=== PATIENT | female | born 1940 | race Caucasian/White ===

== ENCOUNTER 2018-10-06 16:28 | Inpatient (IN) ==
[2018-10-06] MEDS ORDERED: D50W SYRINGE IV PRN (18:15)
[2018-10-06] MEDS: ROCEPHIN 1 GM in NS 50 ML IV SCH (18:19)
[2018-10-06 18:20] LABS: ALLEN TEST YES; BE 8.8 mmoll (-3.0-3.0); BLOOD TYPE ARTERIAL; HCO3-(ACT) 31.7 mmoll (20.0-26.0); METHB 0.9 % (0.0-1.5); O2(CT) 15.5 mL/dL (15.0-23.0); O2HB 94.2 % (95.0-99.0); PCO2(98.6) 32 mmHg (35-45); PO2(98.6) 68 mmHg (60-100); SAMPLE BLOOD; SAO2 96.9 % (95.0-100.0); THB 11.7 g/dL (11.5-17.4)
[2018-10-06 18:21] LABS: MODALITY CANNULA; pH(98.6) 7.59 (7.35-7.45)
[2018-10-06] MEDS: NS 1,000 ML IV SCH ×2 (18:25→19:44)
[2018-10-06] MEDS ORDERED: NS 1,000 ML IV SCH (18:30)
[2018-10-06] MEDS ORDERED: CATAPRES PO PRN (18:32)
[2018-10-06 18:50] LABS: URINE SOURCE CATH
[2018-10-06 18:53] LABS: BILIRUBIN URINE NEGATIVE (NEGATIVE); BLOOD URINE MODERATE (NEGATIVE); COLOR ORANGE; GLUCOSE URINE NEGATIVE (NEGATIVE); KETONE URINE NEGATIVE (NEGATIVE); LEUKOCYTES URINE LARGE (NEGATIVE); NITRITE URINE NEGATIVE (NEGATIVE); PROTEIN URINE 100 mg/dL (NEGATIVE); SP GRAVITY URINE 1.016; TURBIDITY URINE TURBID (CLEAR); UROBILINOGEN URINE NORMAL (NORMAL)
[2018-10-06 19:14] LABS: BASO# 0.02 X1000 (0.0-0.2); BASO% 0.2 % (0.0-0.8); EOS# 0.07 X1000 (0.0-0.7); EOS% 0.8 % (0.0-10.0); HEMATOCRIT 35.8 % (37.0-47.0); LYMPH# 1.69 X1000 (1.2-3.4); LYMPH% 18.8 % (20.5-51.1); MCHC 33.5 g/dL (33-37); MCV 83.4 FL (81-99); MONO# 1.19 X1000 (0.11-0.59); MONO% 13.2 % (1.7-9.3); MPV 11.7 FL (7.4-10.4); NEUT# 6.04 X1000 (1.4-6.5); PLT 146 X1000 (130-400); RBC 4.29 XMIL (4.2-5.4); RDW 13.3 % (11.5-14.5); WBC 9.01 X1000 (4.8-10.8)
[2018-10-06 19:20] LABS: UR EPITHELIAL CELLS <10 /HPF (<10); URINE BACTERIA 4+ /HPF; URINE RBC <10 /HPF (<10); URINE WBC TNTC /HPF (<10)
[2018-10-06 19:21] LABS: URINE CASTS GRANULAR PRESENT; URINE CRYSTALS NONE SEEN; URINE SMALL ROUND CELLS NONE SEEN; URINE YEAST NONE SEEN
[2018-10-06 19:25] LABS: HEMOGLOBIN A1C 5.5 % (4.8-6.0)
[2018-10-06 19:35] LABS: ALB/GLOB RATIO 1.3; ALBUMIN 3.4 g/dL (3.5-5.0); CALCIUM 7.8 mg/dL (8.8-10.2); CREATININE 1.5 mg/dL (0.5-0.9); POTASSIUM 2.8 mmol/L (3.5-5.1); TOTAL BILIRUBIN 2.55 mg/dL (0.20-1.00)
[2018-10-06] MEDS: TYLENOL PO PRN (19:51)
[2018-10-06] MEDS: HUMULIN R SUBQ SCH (20:57)
[2018-10-07] MEDS: NS 1,000 ML IV SCH ×4 (03:03→23:59)
[2018-10-07] MEDS: ROCEPHIN 1 GM in NS 50 ML IV SCH ×2 (06:01→17:29)
[2018-10-07] MEDS: HUMULIN R SUBQ SCH ×4 (06:01→21:52)
--- NOTE | 2018-10-07 07:21 | EKG Report ---
Test Performed on : 10/07/2018 06:49:05 AM Test Reason : Hypotension Blood Pressure : / mmHG Vent. Rate : 065 BPM Atrial Rate : 065 BPM P-R Int : 150 ms QRS Dur : 084 ms QT Int : 488 ms P-R-T Axes : 029 063 049 degrees QTc Int : 507 ms Normal sinus rhythm. Prolonged QT Abnormal ECG When compared with ECG of 19-AUG-2017 13:26, No significant change was found Confirmed by August RAMIREZ, Valeriy Hill ([id number]) on 10/07/2018 6:39:05 PM
--- NOTE | 2018-10-07 07:53 | Diag Imaging Result Doc PS360 ---
EXAM: CHEST-PORTABLE 10/07/2018 HISTORY: Bronchitis TECHNIQUE: AP portable at 0516 COMMENT: There is subsegmental atelectasis in the left base which is slightly worse than on 08/19/2017. Otherwise are has been no significant change. IMPRESSION: Left lower lobe atelectasis. Electronically signed by Darryl Mohr 10/07/2018 7:51 AM
[2018-10-07] MEDS: KLOR-CON PO SCH ×2 (08:48→21:45)
[2018-10-07] MEDS: TYLENOL PO PRN ×2 (08:48→23:59)
--- NOTE | 2018-10-07 09:10 | PROGRESS NOTE ---
DATE: 10/07/2018 SUBJECTIVE: The patient says she still does not feel well. She was running a fever when she first came in, and that has come down. When I saw her in the office, her blood pressure standing was 80/40. When she got here at the hospital her blood pressure was better but they were checking her pressure while she was lying down. OBJECTIVE: Vital Signs: Temperature 98.7 degrees Fahrenheit, blood pressure 127/63, respirations 18, pulse 61. Temperature was 100.8 degrees initially when she came in the hospital. HEENT: She is normocephalic. EOMs intact. Throat clear. Patient does complain of headache. Neck: Supple. Lungs: Sound clear to auscultation and percussion without rhonchi, rales, or wheezes. Heart: Regular rate and rhythm without murmurs, gallops, friction rubs. Abdomen: Soft. Active bowel sounds. No organomegaly or tenderness. Neurological: Intact grossly. The patient appears to feel bad. LABORATORY DATA: White count is only 9010, hemoglobin 12.0. Blood gas showed a pH of 7.59, pCO2 32, PO2 of 68. Her potassium was 2.8, her sodium 135. Total bilirubin was up at 2.55. Urinalysis shows white blood cells too numerous to count. She has 4+ bacteria. Urine culture is pending. Has been started on antibiotics. We will start on supplemental potassium. ASSESSMENT: 1. Hypotension. 2. Rule out urosepsis. 3. Urinary tract infection. 4. Hypoxia. 5. History of hypertension. 6. Headache. PLAN: Continue IV fluids. Have consulted Pulmonology for the hypotension and for the hypoxia. It is interesting that her oxygen saturation at the office was 97%. Possibly this could be due to her urosepsis or just an urinary tract infection, but that does not exactly explain her PO2 of only 68. We will continue to support and await cultures. cc: MD BRANDIE Sarabia Jr
[2018-10-07] MEDS ORDERED: DULCOLAX PR ONE (14:25)
--- NOTE | 2018-10-08 01:54 | PULMONOLOGY CONSULTATION ---
DATE: 10/07/2018 REQUESTING PHYSICIAN: Dr. Wilson. REASON FOR CONSULTATION: Wheezing. HISTORY OF PRESENT ILLNESS: Ms. Shah is a 77-year-old white female, never smoker, with history of hypertension, who has felt nauseous over the last several days associated with decreased p.o. intake. She was evaluated by Dr. Wilson and was noted to be hypoxemic and hypotensive. She was admitted to the ICU for additional evaluation and treatment. The patient does report cough. She denies significant sputum production. She has received IV fluids with some symptomatic improvement. PAST MEDICAL HISTORY: 1. Hypertension, on 3 medications. 2. Hypothyroidism. 3. Dyslipidemia. 4. Anxiety disorder. 5. Mitral valve prolapse. 6. Benign positional vertigo. 7. History of depression. 8. History of type 2 diabetes mellitus. 9. Status post appendectomy. 10. Status post bladder tacking surgery. 11. Cataract surgery. 12. Status post cholecystectomy. 13. Status post hysterectomy. SOCIAL HISTORY: The patient is a nonsmoker and a nondrinker. FAMILY HISTORY: Positive for hypertension, dementia, blood clots in several family members. REVIEW OF SYSTEMS: As noted in the HPI. PHYSICAL EXAMINATION: General: Reveals a well-developed, well-nourished female, resting comfortably and in no distress. Vital signs: Maximum temperature in the last 24 hours 100.8 degrees. Blood pressure 133/57, heart rate 66, respiratory rate 19, oxygen saturation 98% on 2 L per nasal cannula. HEENT: Pupils are equal and reactive. Oropharynx appears clear. Neck: Supple. Chest: Reveals crackles at the left base. Cardiac: S1, S2. Abdomen: Soft. Extremities: Without edema. LABORATORIES: Blood cultures are negative to date. Urine culture is growing a gram-negative tommie. Arterial blood gas reveals pH 7.59, pCO2 of 32, PO2 of 68, with an increased AA gradient of 92. IMPRESSION: A 77-year-old with 1. Acute hypoxemic respiratory failure. 2 Atelectasis 3. Mild hypotension, likely related to dehydration. 4. Gram-negative urinary tract infection. 5. Dizziness. RECOMMENDATIONS: 1. Agree with continued hydration, but would decrease IV fluids Marvin morning. 2. Continue current antibiotics pending results of urinary tract cultures. 3. Initiate incentive spirometry. 4. Followup 2 view chest x-ray. If atelectasis persists at the left base, would pursue CT scan. cc: MD Aureliano Jung Jr, MD MTDD
[2018-10-08] MEDS: ROCEPHIN 1 GM in NS 50 ML IV SCH (05:01)
[2018-10-08 05:40] LABS: BASO# 0.02 X1000 (0.0-0.2); BASO% 0.4 % (0.0-0.8); EOS# 0.18 X1000 (0.0-0.7); EOS% 3.8 % (0.0-10.0); HEMATOCRIT 31.8 % (37.0-47.0); HEMOGLOBIN 10.5 g/dL (12.0-16.0); LYMPH# 1.47 X1000 (1.2-3.4); LYMPH% 30.9 % (20.5-51.1); MCH 27.4 PG (27-31); MONO# 0.71 X1000 (0.11-0.59); MONO% 14.9 % (1.7-9.3); MPV 11.8 FL (7.4-10.4); NEUT# 2.38 X1000 (1.4-6.5); PLT 134 X1000 (130-400); RBC 3.83 XMIL (4.2-5.4); RDW 13.2 % (11.5-14.5); WBC 4.76 X1000 (4.8-10.8)
[2018-10-08] MEDS: NS 1,000 ML IV SCH ×3 (06:45→19:56)
[2018-10-08] MEDS: HUMULIN R SUBQ SCH ×4 (06:46→19:57)
[2018-10-08 06:59] LABS: CALCIUM 6.9 mg/dL (8.8-10.2)
[2018-10-08 07:00] LABS: CREATININE 1.1 mg/dL (0.5-0.9); MAGNESIUM 1.6 mg/dL (1.5-2.7); PHOSPHORUS 2.1 mg/dL (2.7-4.5); POTASSIUM 2.9 mmol/L (3.5-5.1)
--- NOTE | 2018-10-08 07:12 | Diag Imaging Result Doc PS360 ---
EXAM: CHEST-PORTABLE 10/08/2018 HISTORY: abnormal exam TECHNIQUE: AP portable at 0523 COMMENT: The subsegmental atelectasis in the left lower lobe which was present on 10/07/2018 has largely resolved. Otherwise the appearance of the chest has not changed significantly. IMPRESSION: Improved left lower lobe atelectasis. Electronically signed by Darryl Mohr 10/08/2018 7:10 AM
[2018-10-08] MEDS: KLOR-CON PO SCH ×2 (08:20→19:57)
[2018-10-08] MEDS ORDERED: ALBUMIN 25% IV ONE (08:46)
[2018-10-08 09:20] LABS: ALB/GLOB RATIO 1.4; ALBUMIN 2.8 g/dL (3.5-5.0); DIRECT BILIRUBIN 0.1 mg/dL (0.00-0.20); T4 7.69 ug/dL (4.60-12.00); TOTAL BILIRUBIN 0.47 mg/dL (0.20-1.00); TOTAL PROTEIN 4.8 g/dL (6.3-8.3); TSH 1.09 uIUmL (0.27-4.20)
[2018-10-08 09:27] LABS: URINE SOURCE CATH
[2018-10-08 09:40] LABS: BILIRUBIN URINE NEGATIVE (NEGATIVE); BLOOD URINE TRACE (NEGATIVE); COLOR STRAW; GLUCOSE URINE NEGATIVE (NEGATIVE); KETONE URINE NEGATIVE (NEGATIVE); LEUKOCYTES URINE NEGATIVE (NEGATIVE); NITRITE URINE NEGATIVE (NEGATIVE); PROTEIN URINE 30 mg/dL (NEGATIVE); SP GRAVITY URINE 1.001; TURBIDITY URINE CLEAR (CLEAR); UROBILINOGEN URINE NORMAL (NORMAL)
[2018-10-08 09:41] LABS: UR EPITHELIAL CELLS <10 /HPF (<10); URINE BACTERIA NEGATIVE /HPF; URINE RBC <10 /HPF (<10); URINE WBC <10 /HPF (<10)
--- NOTE | 2018-10-08 10:51 | Diag Imaging Result Doc PS360 ---
EXAM: US ABDOMEN-COMPLETE 10/08/2018 HISTORY: hyperbilirubinemia TECHNIQUE: Abdominal ultrasound COMMENT: The pancreatic head and body are normal in appearance. The visualized portions of the aorta and inferior vena cava are within normal limits. The liver is slightly hyperechoic and inhomogeneous in echotexture. There is antegrade flow in the portal vein. The common bile duct is dilated at 8 mm. The kidneys are without evidence of hydronephrosis or mass. The spleen is not enlarged. There are no abnormal fluid collections. The gallbladder is surgically absent. IMPRESSION: Borderline dilatation the common bile duct. This may be physiologic following cholecystectomy. Otherwise no evidence of acute disease. Electronically signed by Darryl Mohr 10/08/2018 10:49 AM
--- NOTE | 2018-10-08 11:03 | PROGRESS NOTE ---
DATE: 10/08/2018 SUBJECTIVE: The patient says she is feeling better. OBJECTIVE: Blood pressure 140/69. She has no orthostasis now. Respirations 18, pulse 68, and temperature 98 degrees Fahrenheit.HEENT: She is normocephalic. EOMs intact. PERRLA. Throat clear. Lungs: Clear to auscultation and percussion without rhonchi, rales, or wheezes. Chest x-ray shows improvement of the left lower lobe atelectasis. Heart: Regular rate and rhythm without murmurs, gallops, or friction rubs. Abdomen: Soft. Active bowel sounds. No organomegaly or tenderness. Neurological: Intact grossly. Patient does look better. LABORATORY: Calcium of 6.9, but albumin of 2.7. She is growing gram-negative tommie in her urine. This has not been identified yet. Potassium is up from 2.8 to 2.9. She is getting oral potassium. Initial bilirubin was elevated to 2.55. ASSESSMENT: 1. Hypotension resolved. 2. Hypoxia improved. 3. Urinary tract infection. 4. Atelectasis of left lower lung field. 5. Hypokalemia. 6. Hypoalbuminemia. 7. Hypocalcemia. 8. Hyperbilirubinemia. PLAN: We will transfer her to telemetry bed. We will give her some albumin. She has not been eating much. We will get an ultrasound of her abdomen because of the elevated bilirubin. We will continue IV antibiotics until we see what her culture is on her urine. It should be noted that her white count is 4760, hemoglobin 10.5. She is swelling some which may be due to her low albumin, and the fact that we have been pushing fluids for her blood pressure. We will decrease her fluids. cc: Aureliano Wilson Jr, MD [facility]
[2018-10-08] MEDS: MERREM 500 MG in NS 50 ML IV SCH ×2 (12:16→19:56)
--- NOTE | 2018-10-08 18:21 | PULMONOLOGY PROGRESS NOTE ---
DATE: 10/08/2018 SUBJECTIVE: The patient is awake, alert, and conversant. She reports she feels significantly better. She is tolerating p.o. intake. OBJECTIVE: Vital Signs: The patient has been afebrile for the last 24 hours. Blood pressure 136/90, heart rate 73, respiratory rate 20, oxygen saturation 99% on 2 L per nasal cannula. HEENT: Pupils are equal and reactive. Oropharynx is clear. Neck: Supple. Chest: Reveals good air entry bilaterally. Cardiac exam: S1-S2. Abdomen: Soft. Extremities: Are without edema. LABORATORIES: Urine culture reveals an ESBL positive E coli. Chest x-ray reveals clearing of the left lower lobe atelectasis. IMPRESSION: A 77-year-old with: 1. Acute hypoxemic respiratory failure. 2. Mild dehydration with resolution following fluids. 3. ESBL positive E coli. 4. Atelectasis with resolution. RECOMMENDATIONS: 1. Initiate a carbapenem for her ESBL positive E coli. 2. Continue bronchial hygiene. 3. Continue incentive spirometry. 4. Pulmonary issues appear to be resolving. Will sign off. Please consult if needed. cc: MD Aureliano Jung Jr, MD
[2018-10-09] MEDS: TYLENOL PO PRN ×2 (00:17→21:55)
[2018-10-09] MEDS: HUMULIN R SUBQ SCH ×5 (04:46→21:54)
[2018-10-09] MEDS: KLOR-CON PO SCH ×3 (04:47→21:55)
[2018-10-09] MEDS: MERREM 500 MG in NS 50 ML IV SCH ×3 (05:45→21:54)
[2018-10-09 07:37] LABS: BASO# 0.03 X1000 (0.0-0.2); BASO% 0.6 % (0.0-0.8); EOS# 0.15 X1000 (0.0-0.7); EOS% 3.1 % (0.0-10.0); HEMATOCRIT 31.9 % (37.0-47.0); HEMOGLOBIN 10.4 g/dL (12.0-16.0); IMM GRAN# 0.02 X1000 (0.0-0.04); IMM GRAN% 0.4 % (0.0-0.5); LYMPH# 1.55 X1000 (1.2-3.4); LYMPH% 32.4 % (20.5-51.1); MCH 27.1 PG (27-31); MCHC 32.6 g/dL (33-37); MCV 83.1 FL (81-99); MONO# 0.44 X1000 (0.11-0.59); MONO% 9.2 % (1.7-9.3); NEUT% 54.3 % (42.2-75.2); PLT 139 X1000 (130-400); RBC 3.84 XMIL (4.2-5.4); WBC 4.79 X1000 (4.8-10.8)
[2018-10-09 08:02] LABS: CALCIUM 7.9 mg/dL (8.8-10.2); POTASSIUM 3.2 mmol/L (3.5-5.1)
--- NOTE | 2018-10-09 12:54 | PROGRESS NOTE ---
DATE: 10/09/2018 SUBJECTIVE: The patient says she feels much better. OBJECTIVE: Vital Signs: Blood pressure 138/85, respirations 18, pulse 65, temperature 98.1 degrees Fahrenheit. HEENT: She is normocephalic. EOMS intact. PERRLA. Throat clear. Lungs: Clear to auscultation and percussion without rhonchi, rales, or wheezes. Heart: Regular rate and rhythm without murmurs, gallops, or friction rubs. Abdomen: Soft. Active bowel sounds. No organomegaly or tenderness. Neurological: Intact grossly. LABORATORY DATA: White count is down to 4790. Potassium is still a little low at 3.2, but we are supplementing her potassium. Calcium is back up to 7.9. She is eating better now. Urinalysis yesterday was normal. She has been changed over to meropenem, as she was resistant to the Rocephin. When she goes home, we will probably put her on Macrobid. ASSESSMENT: 1. Hypotension, resolved. 2. Urinary tract infection, resolving. 3. Respiratory distress. 4. Weakness. 5. Hypokalemia. PLAN: We will get her up with physical therapy. Continue her antibiotics. Her calcium got better after I gave her some albumin, as she was low on her albumin. If she does well with her walking today and has no trouble with her breathing, possibly home in the morning. cc: Aureliano Wilson Jr, MD
[2018-10-09] MEDS: NS 1,000 ML IV SCH (14:05)
[2018-10-10] MEDS: NS 1,000 ML IV SCH (03:30)
[2018-10-10] MEDS: MERREM 500 MG in NS 50 ML IV SCH ×2 (03:31→12:58)
[2018-10-10] MEDS: HUMULIN R SUBQ SCH ×2 (06:12→11:25)
[2018-10-10 07:15] LABS: BASO# 0.02 X1000 (0.0-0.2); BASO% 0.3 % (0.0-0.8); EOS# 0.18 X1000 (0.0-0.7); EOS% 2.7 % (0.0-10.0); HEMATOCRIT 30.9 % (37.0-47.0); HEMOGLOBIN 10.3 g/dL (12.0-16.0); IMM GRAN# 0.02 X1000 (0.0-0.04); IMM GRAN% 0.3 % (0.0-0.5); LYMPH% 19.8 % (20.5-51.1); MCH 27.5 PG (27-31); MCHC 33.3 g/dL (33-37); MCV 82.4 FL (81-99); MONO# 0.55 X1000 (0.11-0.59); MONO% 8.4 % (1.7-9.3); MPV 11.7 FL (7.4-10.4); NEUT# 4.48 X1000 (1.4-6.5); NEUT% 68.5 % (42.2-75.2); PLT 163 X1000 (130-400); RBC 3.75 XMIL (4.2-5.4); RDW 13.1 % (11.5-14.5); WBC 6.55 X1000 (4.8-10.8)
[2018-10-10 07:48] LABS: CALCIUM 7.7 mg/dL (8.8-10.2); CREATININE 0.9 mg/dL (0.5-0.9); POTASSIUM 3.7 mmol/L (3.5-5.1)
[2018-10-10] MEDS: KLOR-CON PO SCH (09:44)
[2018-10-10 12:08] VITALS: BP 140/66
--- NOTE | 2018-10-10 15:12 | DISCHARGE SUMMARY ---
ADMISSION DATE: 10/06/2018 DISCHARGE DATE: 10/10/2018 FINAL DIAGNOSES: 1. Hypotension. 2. Respiratory arrest. 3. Hypoxia. 4. Urinary tract infection. 5. Hyperbilirubinemia. 6. History of hypertension. 7. Gastroesophageal reflux disease. 8. Adult-onset diabetes mellitus. 9. Hyperlipidemia. 10. Depression. 11. Hypokalemia. 12. Hyperbilirubinemia. 13. Acute kidney injury. DISCHARGE MEDICATIONS: We will discharge home on home medications, minus her enalapril and her labetalol for right now. She will check blood pressures at home, and if her systolic blood pressure gets to 150 or greater, she may restart her blood pressure medications. The patient is currently on Effexor, and will continue to take that. CONSULTATIONS: Consultation was made with Dr. Hernandez, shelf filler. HISTORY OF PRESENT ILLNESS: The patient came to my office feeling very weak. Standing, her blood pressure was 80/40. We checked this twice with 2 different nurses checking the blood pressure. She was also short of breath. She came to the hospital, and her oxygen level in her blood gas was only 68. I placed her in the unit because of her hypotension and her hypoxia, and consulted Dr. Hernandez. Her hypoxia cleared fairly quickly. Chest x-ray just showed atelectasis in the left base. Creatinine was up to 1.5. It has come down to 1 now. Her calcium was a little low, but so was her albumin and her total protein. I suspect this was when she had not been eating for several days before coming into the hospital. Her initial urinalysis showed WBCs too numerous to count, but within 2 days, this had cleared. She was initially placed on Rocephin, and then was found that the Escherichia coli was probably resistant to Rocephin, and was placed on Merrem. It is also sensitive to Macrobid, and I am going to send her home on Macrobid 100 mg p.o. b.i.d. for 7 days. The patient also had hypokalemia, and potassium was down to 2.8. On discharge, it was 3.7 after supplementation. White count was always normal. Blood gas had a pH of 7.59, pCO2 of 32, PO2 of 68. PHYSICAL EXAMINATION: Vital Signs: Here, vital signs initially were better, but her blood pressure was taken lying down, and her blood pressure was 142/53. On discharge, it is 148/80, respirations 25, pulse 72, she is afebrile. HEENT: She is normocephalic. EOMS intact. PERRLA. Throat clear. Lungs: Clear to auscultation and percussion without rhonchi, rales, or wheezes. Heart: Regular rate and rhythm without murmurs, gallops, friction rubs. Abdomen: Soft. Active bowel sounds. No organomegaly or tenderness. Neurological: Cranial nerves II through XII are intact grossly. Sensory motor intact. Please note also, bilirubin was elevated while she was in the hospital to 2.55. I repeated it, and it came back at 0.47, but we also did an ultrasound of her abdomen, and that was essentially normal. She has already had a cholecystectomy. I suspect that she developed a urinary tract infection and quit eating and drinking and became hypotensive with that, and had a little acute kidney injury, which has since resolved. Her potassium had also gone down. Her protein and her albumin had gone down. I think these are doing better now that she is eating. She has been up and taking a shower without difficulty. Seems to have no orthostasis now. I will see her back in my office in 2 days with a chemistry profile, and if she has not restarted her blood pressure medications already, we will consider doing so at that time. Will see what her blood pressure is then. cc: Aureliano Wilson Jr, MD
== END 2018-10-10 14:19 | disposition home or self-care (01) | DRG 682 ==
LOC: DIRADM 16:28 → ICU 17:04 → 3N 10-08 17:07
PROVIDERS: ADMIT Emergency Medicine; ATTEND Emergency Medicine
CPT/HCPCS: 71010; 71045; 76700; 80048; 80053; 80076; 81001; 82040; 82550; 82805; 82948; 83036; 83735; 84100; 84436; 84443; 84480; 84484; 85025; 87040; 87077; 87088; 87186; 93005; 93010; 94761; A9270; J0696; J2185; J7030; P9047; XXXXX